=== PATIENT | male | born 2000 | race Caucasian/White ===

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

== ENCOUNTER 2020-06-08 23:46 | Emergency (ER) | payer BC ==
[2020-06-08 23:55] VITALS: TEMP 97.5
[2020-06-09] MEDS ORDERED: KETOROLAC 15 MG/ML 1 ML VIAL IM STA (00:03)
[2020-06-09] MEDS ORDERED: HYDROmorphone 1 MG/ML 1 ML SYRINGE IM STA (00:03)
[2020-06-09] MEDS ORDERED: KETOROLAC 15 MG/ML 1 ML VIAL ONE (00:06)
--- NOTE | 2020-06-09 00:21 | XR ---
EXAMINATION TYPE: XR shoulder complete RT DATE OF EXAM: 06/09/2020 COMPARISON: NONE HISTORY: Shoulder pain TECHNIQUE: 3 views FINDINGS: There is anterior dislocation of the glenohumeral joint. I see no fracture. The AC joint is intact. IMPRESSION: Anterior shoulder joint dislocation.
--- NOTE | 2020-06-09 00:56 | XR ---
EXAMINATION TYPE: XR shoulder limited RT DATE OF EXAM: 06/09/2020 COMPARISON: Today HISTORY: Post reduction TECHNIQUE: Single view FINDINGS: There appears to be anatomic reduction of the glenohumeral joint. I see no fracture line. IMPRESSION: Anatomic reduction.
--- NOTE | 2020-06-09 01:00 | ED ---
Upper Extremity HPI - General Chief Complaint: Extremity Injury, Upper Stated Complaint: Fall, Rt shoulder Injury Time Seen by Provider: 06/08/20 23:58 Source: patient Mode of arrival: ambulatory Limitations: no limitations - History of Present Illness Initial Comments: 19-year-old male patient presents to the emergency department today for evaluation of right shoulder pain. Patient slipped and fell landing on the right shoulder around 11:30 this evening. Patient denies hitting his head or losing consciousness. Denies any neck or back pain. Denies any injury to his lower extremities. Patient states he is unable to move his right arm. He reports some tingling sensation to the right hand. Denies any pain over the elbow. Patient denies any headache, neck pain, back pain, chest pain, shortness of breath, dizziness, weakness, abdominal pain, nausea, vomiting, or difficulties with bowel movements or urination. - Related Data Home Medications Medication Instructions Recorded Confirmed Cetirizine HCl 10 mg PO DAILY 12/17/14 08/21/17 Previous Rx's Medication Instructions Recorded Ibuprofen [Motrin] 600 mg PO Q8HR PRN #30 tab 06/09/20 Allergies Allergy/AdvReac Type Severity Reaction Status Date / Time No Known Allergies Allergy Verified 06/08/20 23:54 Review of Systems ROS Statement: Those systems with pertinent positive or pertinent negative responses have been documented in the HPI. ROS Other: All systems not noted in ROS Statement are negative. Past Medical History Past Medical History: No Reported History History of Any Multi-Drug Resistant Organisms: None Reported Past Surgical History: Adenoidectomy Past Psychological History: No Psychological Hx Reported Past Alcohol Use History: Occasional Past Drug Use History: None Reported, Marijuana General Exam Limitations: no limitations General appearance: alert, in no apparent distress, other (This is a well- developed, well-nourished adult male patient in no acute distress. Vital signs upon presentation are temperature 97.5F, pulse 71, respirations 22, blood pressure 146/85, pulse ox 100% on room air.) Head exam: Present: atraumatic, normocephalic, normal inspection Eye exam: Present: normal appearance, PERRL, EOMI. Absent: scleral icterus, conjunctival injection, periorbital swelling ENT exam: Present: normal exam, normal oropharynx, mucous membranes moist Neck exam: Present: normal inspection, full ROM, other (Nontender, no step-off, no deformity to firm midline palpation of the posterior cervical spine. Full range of motion without pain or limitation.). Absent: tenderness, meningismus, lymphadenopathy Respiratory exam: Present: normal lung sounds bilaterally. Absent: respiratory distress, wheezes, rales, rhonchi, stridor Cardiovascular Exam: Present: regular rate, normal rhythm, normal heart sounds. Absent: systolic murmur, diastolic murmur, rubs, gallop, clicks Extremities exam: Present: full ROM, normal capillary refill, other (There is deformity noted to the right shoulder. Skin to the right arm is pink, warm, dry. Cap refill less than 3 seconds. Radial pulses 2+.). Absent: normal inspection, tenderness, pedal edema, joint swelling, calf tenderness Back exam: Present: normal inspection, other (Nontender, no step-off, no deformity to firm midline palpation of the thoracic and lumbar vertebrae. Full range of motion without pain or limitation.). Absent: vertebral tenderness Neurological exam: Present: alert, oriented X3, CN II-XII intact Psychiatric exam: Present: normal affect, normal mood Skin exam: Present: warm, dry, intact, normal color. Absent: rash Course Vital Signs 06/08/20 06/09/20 23:49 01:09 Temperature 97.5 F L Pulse Rate 71 84 Respiratory 22 16 Rate Blood Pressure 146/85 141/79 O2 Sat by Pulse 100 98 Oximetry Procedures - Orthopedic Joint Reduction Joint #1 Consent Obtained: verbal consent Side: right Joint Reduction Location: shoulder Shoulder Technique Used (if applicable): traction/counter-traction, external rotation Post-Reduction Neuro Exam: intact Post-Reduction Vascular Exam: intact Post Reduction X-Ray Obtained: Yes Post Reduction X-Ray Results: reduced Splint Applied: Yes (Sling) Patient Tolerated Procedure: well, no complications Medical Decision Making - Medical Decision Making 19-year-old male patient presented to the emergency department today for evaluation of right shoulder pain after experiencing a slip and fall. Physical examination did reveal deformity to the right shoulder. He had good neurovascular status. X-rays were obtained and showed an anterior dislocation. Patient was given IM doses of Toradol and Dilaudid. Once pain medication had a chance to take effect I did perform closed reduction of the right shoulder utilizing external rotation followed by traction countertraction which did excessively reduce the shoulder. Postreduction x-ray was obtained and showed anatomic reduction of the shoulder. Patient states pain is much improved. Placed in a sling. He'll be given prescription for ibuprofen and instructed to follow-up with the email campaign specialist for further evaluation as soon as possible. He is educated regarding gentle range of motion exercises with the shoulder while in a sling. Return parameters were discussed in detail. He debbie balizes understanding and agrees with this plan. Case discussed with my attending Dr. Lundberg. - Radiology Data Radiology results: report reviewed, image reviewed 3 views of the right shoulder obtained. Report was reviewed in its entirety. Impression by Dr. Moore shows anterior shoulder joint dislocation. Single view of the right shoulder is obtained. Report was reviewed in its entirety. Impression by Dr. Moore shows anatomic reduction. Disposition Clinical Impression: Dislocation of right shoulder joint Disposition: HOME SELF-CARE Condition: Good Instructions (If sedation given, give patient instructions): Shoulder Disl ocation (ED) Additional Instructions: Take medication as needed for pain control. Apply ice to the shoulder to aid with soreness. Follow-up with the email campaign specialist for further evaluation as soon as possible. Use sling until cleared by orthopedics. Remove sling 2-3 times per day and perform very gentle minimal range of motion of the shoulder. Return to the emergency department for any new, worsening, or concerning symptoms. Prescriptions: Ibuprofen [Motrin] 600 mg PO Q8HR PRN #30 tab PRN Reason: Pain Is patient prescribed a controlled substance at d/c from ED?: No Referrals: Silvina Chery DO [Primary Care Provider] - 1-2 days Steven Mojica MD [STAFF PHYSICIAN] - 1-2 days Time of Disposition: 00:59
[2020-06-09 01:14] VITALS: BP 141/79; PULSE 84; RESP 16
== END 2020-06-09 01:14 | disposition home or self-care (01) ==
LOC: EC 23:46
DX: S43.004A Unspecified dislocation of right shoulder joint, initial encounter (principal); Z79.1 Long term (current) use of non-steroidal anti-inflammatories (NSAID); W01.0XXA Fall on same level from slipping, tripping and stumbling without subsequent striking against object, initial encounter
CPT/HCPCS: 73020; 73030; 99283; 23650; J1170; J1885